=== PATIENT | female | born 1965 | race Caucasian/White ===

== ENCOUNTER 2020-09-19 07:31 | Outpatient (CLI) | payer MEDICARE, MEDICAID | END 2020-09-19 07:32 | disposition home or self-care (01) | LOC: CSHMRI 07:31 | PROVIDERS: ATTEND Psychiatry & Neurology Neurology | DX: I66.09 Occlusion and stenosis of unspecified middle cerebral artery (principal); G43.109 Migraine with aura, not intractable, without status migrainosus; M50.20 Other cervical disc displacement, unspecified cervical region; J34.9 Unspecified disorder of nose and nasal sinuses; M47.812 Spondylosis without myelopathy or radiculopathy, cervical region | CPT/HCPCS: 70553; 72141; 93880 ==